=== PATIENT | female | born 1980 | race Caucasian/White ===

== ENCOUNTER 2019-10-07 11:13 | Outpatient (CLI) | payer OTHER, SELFPAY ==
--- NOTE | 2019-10-07 11:17 | MM_ITS ---
WS: [id number] BILATERAL DIGITAL SCREENING MAMMOGRAPHY WITH CAD CLINICAL INFORMATION: SCREENING HISTORY: Screening mammogram. No current complaints. COMPARISON: TECHNIQUE: Bilateral CC and MLO views. FINDINGS: The breasts are composed of heterogeneous fibroglandular density tissue, which can limit the detectio n of small underlying mass lesions. No suspicious mass, asymmetry, calcifications, or architectural d istortion. No evidence of malignancy. MM/[place] [id number] IMPRESSION: BI-RADS: 1-Negative FOLLOW UP: 1 Year Follow-up Recommend return to annual screening mammography.
== END 2019-10-07 11:14 | disposition home or self-care (01) ==
LOC: RADSHAW 11:13
PROVIDERS: Family Provider Internal Medicine; PCP Internal Medicine; Visit Provider Internal Medicine
DX: Z12.31 Encounter for screening mammogram for malignant neoplasm of breast (principal)
CPT/HCPCS: 77067

== ENCOUNTER → 2020-04-12 08:53 | Outpatient (BNVA) | payer OTHER, SELFPAY | PROVIDERS: Family Provider Internal Medicine; PCP Internal Medicine; Visit Provider Internal Medicine | DX: C73 Malignant neoplasm of thyroid gland (principal); E89.0 Postprocedural hypothyroidism; Z13.1 Encounter for screening for diabetes mellitus; Z13.220 Encounter for screening for lipoid disorders | CPT/HCPCS: 99203 ==

== ENCOUNTER 2020-05-11 07:46 | Outpatient (CLI) | payer OTHER, SELFPAY ==
[2020-05-11 08:30] LABS: Estmated Average Glucose 85; Hemoglobin A1C 4.6 % (4.0-6.0)
[2020-05-11 09:03] LABS: Chol HDL Ratio 3.02 mg/dL (0.0-4.40); Cholesterol 169 mg/dL (0-200); Free T4 Free Thyroxine 1.74 ng/dL (0.82-1.77); HDL Cholesterol 56 mg/dL (60-100); LDL Cholesterol Calculated 100 mg/dL (50-129); LDL HDL Ratio 1.79 RATIO (0.00-3.22); Thyroid Stimulating Hormone 1.04 uIU/mL (0.27-4.20); Triglycerides 64 mg/dL (0-150)
[2020-05-15 15:53] LABS: Thyroglobulin AB <1 IU/mL (< or = 1)
[2020-05-19 18:27] LABS: Thyroglobulin Level <0.4 ng/mL
== END 2020-05-11 07:47 | disposition home or self-care (01) ==
PROVIDERS: Internal Medicine; PCP Internal Medicine; Visit Provider Internal Medicine
DX: C73 Malignant neoplasm of thyroid gland (principal); E03.9 Hypothyroidism, unspecified; Z13.1 Encounter for screening for diabetes mellitus; Z13.220 Encounter for screening for lipoid disorders
CPT/HCPCS: 80061; 83036; 84432; 84439; 84443; 86800

== ENCOUNTER 2020-06-07 10:19 | Outpatient (CLI) | payer OTHER, SELFPAY ==
--- NOTE | 2020-06-07 10:15 | US_ITS ---
WS: [id number] THYROID ULTRASOUND HISTORY: history of PTC thyroid cancer, s/p total thyroidectomy. COMPARISON: 09/26/2016 Status post complete thyroidectomy. At the thyroid bed there is no evidence for recurrent mass. No ce rvical chain lymphadenopathy. No fluid collections. US/US thyroid [id number] IMPRESSION: Status post complete thyroidectomy with no recurrent mass or nodule.
== END 2020-06-07 10:20 | disposition home or self-care (01) ==
LOC: RAD 10:20
PROVIDERS: PCP Internal Medicine; Visit Provider Internal Medicine
DX: Z85.850 Personal history of malignant neoplasm of thyroid (principal); E89.0 Postprocedural hypothyroidism
CPT/HCPCS: 76536

== ENCOUNTER 2020-11-02 08:39 | Outpatient (CLI) | payer OTHER, SELFPAY ==
--- NOTE | 2020-11-02 08:45 | MM_ITS ---
WS: [id number] SCREENING DIGITAL MAMMOGRAM WITH CAD HISTORY: SCREENING COMPARISON: 10/07/2019, 12/23/2018, 09/23/2018 and 11/24/2014 Bilateral CC and MLO views submitted. Computer aided detection analyzed. Breast composition: There are scattered areas of fibroglandular density. Nodular area of increasing asymmetry in the upper outer quadrant of the RIGHT breast. Best seen on th e elbow MLO projection. Favor this is probably superimposed fibroglandular tissue. Recommend addition al spot views. MM/[place] [id number] IMPRESSION: BI-RADS: 0-Incomplete: Need additional imaging evaluation FOLLOW UP: Need Additional Imaging RIGHT breast: Spot compression views (CC and MLO). True ML. Ultrasound to follo w if abnormality persists.
== END 2020-11-02 08:40 | disposition home or self-care (01) ==
LOC: RADSHAW 08:42
PROVIDERS: PCP Internal Medicine; Visit Provider Obstetrics & Gynecology
DX: Z12.31 Encounter for screening mammogram for malignant neoplasm of breast (principal); N64.89 Other specified disorders of breast
CPT/HCPCS: 77067

== ENCOUNTER 2020-11-21 13:09 | Outpatient (CLI) | payer OTHER, SELFPAY ==
--- NOTE | 2020-11-21 13:15 | US_ITS ---
WS: [id number] RIGHT DIGITAL MAMMOGRAPHY WITH CAD CLINICAL INFORMATION: N64.89 - Other specified disorders of breas COMPARISON: October 23, 2020 TECHNIQUE: 3 views of the right breast were obtained. FINDINGS: Scattered fibroglandular densities of the right breast. Asymmetric density upper outer right breast i s persistent today. This persists on spot compression views. Ultrasound is pending. ULTRASOUND BREAST RIGHT TECHNIQUE: Ultrasound right breast focused area of concern. CLINICAL INFORMATION: N64.89 - Other specified disorders of breast COMPARISON: None. FINDINGS: Ultrasound right breast 9 to 11:00 position. A few incidental dilated ducts some with debris. Normal underlying breast tissue with fibrocystic changes. No suspicious cystic or solid lesions. No lesions to target for biopsy. Recommend return to annual screening mammography. US/US breast RT limited* [id number] IMPRESSION: BI-RADS: 2-Benign FOLLOW UP: 1 Year Follow-up Recommend return to annual screening mammography.
--- NOTE | 2020-11-21 13:30 | MM_ITS ---
WS: [id number] RIGHT DIGITAL MAMMOGRAPHY WITH CAD CLINICAL INFORMATION: N64.89 - Other specified disorders of breas COMPARISON: October 23, 2020 TECHNIQUE: 3 views of the right breast were obtained. FINDINGS: Scattered fibroglandular densities of the right breast. Asymmetric density upper outer right breast i s persistent today. This persists on spot compression views. Ultrasound is pending. ULTRASOUND BREAST RIGHT TECHNIQUE: Ultrasound right breast focused area of concern. CLINICAL INFORMATION: N64.89 - Other specified disorders of breast COMPARISON: None. FINDINGS: Ultrasound right breast 9 to 11:00 position. A few incidental dilated ducts some with debris. Normal underlying breast tissue with fibrocystic changes. No suspicious cystic or solid lesions. No lesions to target for biopsy. Recommend return to annual screening mammography. MM/[place] [id number] IMPRESSION: BI-RADS: 2-Benign FOLLOW UP: 1 Year Follow-up Recommend return to annual screening mammography.
== END 2020-11-21 13:10 | disposition home or self-care (01) ==
LOC: RADSHAW 13:12
PROVIDERS: PCP Internal Medicine; Visit Provider Obstetrics & Gynecology
DX: N64.89 Other specified disorders of breast (principal)
CPT/HCPCS: 76642; 77065

== ENCOUNTER → 2020-11-30 08:25 | Outpatient (BNVA) | payer OTHER, SELFPAY | PROVIDERS: PCP Internal Medicine; Visit Provider Internal Medicine | DX: C73 Malignant neoplasm of thyroid gland (principal); E89.0 Postprocedural hypothyroidism | CPT/HCPCS: 99214 ==

== ENCOUNTER 2021-12-05 07:41 | Outpatient (CLI) | payer OTHER, SELFPAY ==
--- NOTE | 2021-12-05 08:00 | MM_ITS ---
WS: [id number] BILATERAL SCREENING 3D TOMOSYNTHESIS DIGITAL MAMMOGRAM WITH CAD HISTORY: SCREENING COMPARISON: 11/21/2020, 11/02/2020, 10/07/2019 and 09/23/2018 Bilateral CC and MLO views submitted. Computer aided detection analyzed. Breast composition: The breasts are heterogeneously dense, which may obscure small masses. No suspici ous masses, microcalcifications or architectural distortion. Asymmetries within each breast have been stable for several years, including 09/23/2018. No suspicious calcification or distortion. MM/[place] [id number] IMPRESSION: BI-RADS: 2-Benign FOLLOW UP: 1 Year Follow-up
== END 2021-12-05 07:42 | disposition home or self-care (01) ==
PROVIDERS: PCP Internal Medicine; Visit Provider Internal Medicine
DX: Z12.31 Encounter for screening mammogram for malignant neoplasm of breast (principal)
CPT/HCPCS: 77063; 77067

== ENCOUNTER → 2022-04-17 12:15 | Outpatient (BNVA) | payer OTHER, SELFPAY | PROVIDERS: PCP Internal Medicine; Visit Provider Nurse Practitioner Women's Health | DX: Z01.419 Encounter for gynecological examination (general) (routine) without abnormal findings (principal) | CPT/HCPCS: 87624 ==

== ENCOUNTER 2022-09-18 01:00 | Outpatient (CLI) | payer OTHER, SELFPAY ==
--- NOTE | 2022-11-14 11:15 | US_ITS ---
WS: [id number] ULTRASOUND THYROID TECHNIQUE: Ultrasound of the thyroid. CLINICAL INFORMATION: Papillary Thyroid carcinoma COMPARISON: June 07, 2020 FINDINGS: Thyroid: Prior complete thyroidectomy. No residual thyroid tissue visualized. No evidence of recurren t mass or lesion in the thyroid bed. Cervical lymphadenopathy: Normal RIGHT cervical lymph node.
== END 2022-09-18 23:00 | disposition home or self-care (01) ==
LOC: RAD 10-07 20:00
PROVIDERS: PCP Family Medicine; Visit Provider Internal Medicine
DX: Z13.6 Encounter for screening for cardiovascular disorders (principal); E89.0 Postprocedural hypothyroidism; Z00.00 Encounter for general adult medical examination without abnormal findings; Z13.1 Encounter for screening for diabetes mellitus
CPT/HCPCS: 80053; 80061; 83036; 84439; 84443; 85025; 86376; 86800

== ENCOUNTER 2022-11-14 10:54 | Outpatient (CLI) | payer OTHER, SELFPAY ==
--- NOTE | 2022-11-14 09:49 | US_ITS ---
WS: [id number] ULTRASOUND THYROID TECHNIQUE: Ultrasound of the thyroid. CLINICAL INFORMATION: Papillary Thyroid carcinoma COMPARISON: June 07, 2020 FINDINGS: Thyroid: Prior complete thyroidectomy. No residual thyroid tissue visualized. No evidence of recurren t mass or lesion in the thyroid bed. Cervical lymphadenopathy: Normal RIGHT cervical lymph node. US/US thyroid [id number] IMPRESSION: 1. Prior postoperative changes complete thyroidectomy. 2. No evidence of recurrent mass or lesion in the thyroid bed.
== END 2022-11-14 10:55 | disposition home or self-care (01) ==
PROVIDERS: PCP Family Medicine; Visit Provider Internal Medicine
DX: C73 Malignant neoplasm of thyroid gland (principal); E89.0 Postprocedural hypothyroidism
CPT/HCPCS: 76536; 84432; 86800

== ENCOUNTER 2022-12-19 07:20 | Outpatient (CLI) | payer OTHER, SELFPAY ==
--- NOTE | 2022-12-19 07:33 | MM_ITS ---
WS: [id number] SCREENING DIGITAL TOMOSYNTHESIS MAMMOGRAM WITH CAD HISTORY: SCREENING COMPARISON: 12/05/2021, 11/02/2020 Bilateral CC and MLO with tomosynthesis views submitted. Synthetic mammography reviewed. Computer aid ed detection analyzed. Breast composition: The breasts are heterogeneously dense, which may obscure small masses. No suspici ous masses, microcalcifications or architectural distortion. Stable asymmetries over multiple years. MM/[place] [id number] IMPRESSION: BI-RADS: 2-Benign FOLLOW UP: 1 Year Follow-up
== END 2022-12-19 07:21 | disposition home or self-care (01) ==
LOC: RAD 07:24
PROVIDERS: PCP Family Medicine; Visit Provider Nurse Practitioner Women's Health
DX: Z12.31 Encounter for screening mammogram for malignant neoplasm of breast (principal)
CPT/HCPCS: 77063; 77067

== ENCOUNTER → 2023-02-19 14:40 | Outpatient (BNVA) | payer OTHER, SELFPAY | PROVIDERS: PCP Family Medicine; Visit Provider Nurse Practitioner Women's Health | DX: N92.0 Excessive and frequent menstruation with regular cycle (principal) | CPT/HCPCS: 85025 ==

== ENCOUNTER → 2023-03-03 13:20 | Outpatient (BNVA) | payer OTHER, SELFPAY | PROVIDERS: PCP Family Medicine; Visit Provider Nurse Practitioner Women's Health | DX: R30.0 Dysuria (principal) | CPT/HCPCS: 84315; 87086 ==

== ENCOUNTER → 2023-03-19 11:03 | Outpatient (BNVA) | payer OTHER, SELFPAY | PROVIDERS: PCP Family Medicine; Visit Provider Nurse Practitioner Women's Health | DX: N93.9 Abnormal uterine and vaginal bleeding, unspecified (principal); R93.89 Abnormal findings on diagnostic imaging of other specified body structures | CPT/HCPCS: 76830 ==

== ENCOUNTER → 2023-03-27 14:38 | Outpatient (BNVA) | payer OTHER, SELFPAY | PROVIDERS: PCP Family Medicine; Visit Provider Nurse Practitioner Women's Health | DX: N93.9 Abnormal uterine and vaginal bleeding, unspecified (principal) | CPT/HCPCS: 88305 ==

== ENCOUNTER 2023-07-07 05:51 | Day surgery (SDC) | payer OTHER, SELFPAY ==
[2023-07-03 11:39] LABS: Basophils % 0.6 %; Eosinophils # 0.1 10^3/uL (0.0-0.8); Eosinophils % 1.7 %; Hematocrit 39.9 % (36-47); Lymphocytes # 1.7 10^3/uL (0.8-4.8); Lymphocytes % 24.9 %; Mean Corpuscular HGB Conc 33.1 g/dL (30-55); Mean Corpuscular Hemoglobin 29.1 pg (27-33); Mean Corpuscular Volume 87.9 fl (85-98); Mean Platelet Volume 10.8 fL (7.4-10.4); Monocytes # 0.4 10^3/uL (0.2-0.9); Monocytes % 5.1 %; Neutrophils # 4.62 10^3/uL (1.8-7.7); Neutrophils % 67.4 %; Nucleated Red Blood Cells % 0 %; Platelet Count 314 10^3/cmm (157-399); Red Blood Count 4.54 10^6/uL (3.85-5.65); Red Cell Distribution Width 14.9 % (12.1-15.1); White Blood Count 6.86 10^3/uL (3.29-11.43)
[2023-07-03 12:00] LABS: Alanine Aminotransferase 16 U/L (0-33); Albumin Level 4.2 g/dL (3.5-5.2); Alkaline Phosphatase 79 U/L (35-105); Anion Gap 11.6 (5-19); Aspartate Amino Transferase 14 U/L (0-32); Blood Urea Nitrogen 12 mg/dL (6-20); Carbon Dioxide 27 mmol/L (22-29); Chloride 104 mmol/L (98-107); Globulin 2.5 g/dL (1.3-4.6); Glomerular Filtration Rate 77.9 mL/min (90-130); Glucose 86 mg/dL (65-115); Osmolality Calculated 287 mOsm/kg (285-295); Potassium 3.6 mmol/L (3.5-5.1); Sodium 139 mmol/L (136-145); Total Bilirubin 0.7 mg/dL (0.15-1.2); Total Protein 6.7 g/dL (6.6-8.7)
[2023-07-03 12:50] LABS: Add Urine Microscopic? YES; Bacteria Urine 1+ /hpf; Bilirubin Urine Neg (Negative); Blood Urine 2+ (Negative); Glucose Urine UA Norm (Normal); Ketones Urine 1+ (Negative); Leukocyte Esterase Urine Negative (Negative); Nitrate Urine Negative (Negative); Protein Urine Neg (Negative); RBC Urine 0-4 /hpf (0-2); Squamous Epithelial Cell Urine 0-4 /hpf (0-5); Urine Appearance Clear (CLEAR); Urine Color Yellow (Yellow); Urobilinogen Urine Norm (Negative); WBC Urine 0-4 /hpf (0-5); pH Urine 5 (5-7)
[2023-07-03 18:57] LABS: OR HCG Qualitative Urine Negative (Negative)
[2023-07-07] VITALS (10 sets, daily range): BP systolic 107–145; BP diastolic 63–93; PULSE 70–105; RESP 16–20; TEMP 36.4–36.6; O2SAT 93–98
[2023-07-07] MEDS: sodium chloride 0.9% 500 ML IV (06:24)
[2023-07-07] MEDS: scopolamine 1.5 Patch 1 PATCH TRANSDERMA (06:26)
[2023-07-07] MEDS: sodium chloride 0.9% 1,000 ML 30 ML IV (06:27)
--- NOTE | 2023-07-07 06:55 | W.PM.OPSUD ---
Surgery/Procedure H&P Update DATE OF PROCEDURE: July 07, 2023 DATE H&P PERFORMED: 07/03/23 H&P UPDATE INFORMATION: I have reviewed H&P completed within last 30 days, I have examined patient prior to procedure and No changes to prior documentation PREOP DIAGNOSIS: Abnormal uterine bleeeding PLANNED PROCEDURE: Operation Date: 07/07/23 07:00 Proposed Procedures p Hysteroscopy w/ Ablation(Not Applicable) - Mati Quesada MD
--- NOTE | 2023-07-07 06:58 | ANES.PREANE2 ---
Pre-Anesthetic Assessment Height/Weight: Height 1.68 m Weight 84.822 kg Temp Pulse Resp BP Pulse Ox O2 Del Method 97.5 F L 70 18 136/89 98 Room Air 07/07/23 05:55 07/07/23 05:55 07/07/23 05:55 07/07/23 05:55 07/07/23 05:55 07/07/23 06:13 Preop Diagnosis: Abnormal uterine bleeeding Operation Date: 07/07/23 07:00 Proposed Procedures p Hysteroscopy w/ Ablation(Not Applicable) - Mati Quesada MD Familial anesthetic complications: ponv Was Beta Apple taken within 24 hours: N/A Was Clonidine taken within 24 hours: N/A Last intake: Intake Last Liquid Date 07/06/23 Last Liquid Time 22:00 Last Solid Date 07/06/23 Last Solid Time 20:30 Social Tobacco and No alcohol Exam alert, oriented x 3, clear to auscultation bilaterally and regular rate & rhythm Airway Mallampati: Class II Dentition: full Anesthetic Plan ASA status: 1 Anesthesia: General Risk of > 500 ml blood loss (7ml/kg in children): No Medications/Allergies Home Medications Medication Instructions Recorded Confirmed Last Taken Type multivitamin 1 cap PO DAILY 04/12/20 07/07/23 07/02/23 History cetirizine 10 mg tablet (Zyrtec) 10 mg PO DAILY PRN Allergy Symptoms 11/08/20 07/03/23 07/06/23 History levothyroxine 137 mcg capsule 137 mcg PO DAILY #90 caps 09/18/22 07/07/23 07/06/23 Rx citalopram 10 mg tablet See Rx Instructions .Route 01/27/23 07/07/23 07/06/23 Rx .COMPLEX #90 tabs Allergies Allergy/AdvReac Type Severity Reaction Status Date / Time Sulfa (Sulfonamide Allergy Mild ALGY-Rash Verified 07/07/23 06:01 Antibiotics) Current Medications Generic Name Dose Route Start Last Admin Trade Name Freq PRN Reason Stop Dose Admin Sodium Chloride 1,000 mls @ 30 mls/hr 07/07/23 06:00 07/07/23 06:27 Sodium Chloride 0.9% IV 07/08/23 05:59 30 mls/hr .Q24H DOMI Administration PFSH Anesthesia Medical History MATTI (generalized anxiety disorder) Papillary thyroid carcinoma Post-surgical hypothyroidism Surgical History History of thyroidectomy Family History Mother Hypertension Diabetes Father Prostate cancer dx age 71 Brother Diabetes Sister Diabetes Heart disease Thyroid disease Grandmother Heart disease Maternal Stroke Maternal Denies family history of Colon cancer Ovarian cancer Hypercholesteremia Breast cancer Uterine cancer Female Reproductive History Date of last menstrual period: 07/03/23 Data Anesthesia 07/03/23 11:10 07/03/23 11:10 Cardiac Studies: No Data to Display
[2023-07-07] MEDS: ceFAZolin 2,000 MG in sodium chloride 0.9% (plus) 50 ML 100 MG IV (06:59)
[2023-07-07 07:02] LABS: OR HCG Qualitative Urine Negative (Negative)
[2023-07-07] MEDS: lidocaine-epi 2% 20 mL INJ INJECTION (07:30)
--- NOTE | 2023-07-07 07:40 | PM.OP ---
Operative Report Date of procedure: July 07, 2023 Pre-op diagnosis: Abnormal uterine bleeding, menorrhagia Post-op diagnosis: Same Post-op findings: Proliferative endometrium Procedure done: Endometrial ablation Hysteroscopy Specimens removed/disposition: Endometrial curettings Surgeon: Mati Quesada MD Estimated blood loss (mL): 10 IV fluids (mL): 800 Complications: none Brief History: Ms. Wood is a 42 year-old female who presented to the office for abnormal uterine bleeding. Ultrasound imaging did not reveal any submucosal fibroids or polyps. Conservative therapies including TXA, OCP, and Mirena were discussed/tried. Ultimately, a plan was made to proceed with a novosure endometrial ablation. Risks, potential complications, and benefits were discussed with Mrs. Emerson and consent was signed prior to the OR. Procedure: After informed consent, this is a 42-year-old patient who has completed childbearing; and she has a tubal ligation. The patient desired control for abnormal uterine bleeding. She declined other more conservative options such as oral contraceptive pills and Mirena intrauterine device. The patient desired an ablation. Risks of the surgery, which include risk of infection, bleeding, urine perforation; were discussed in detail with the patient. Patient was also informed that is not advised after having an ablation procedure done. Patient verbalized understanding of the risks, and informed consent was obtained. The patient was taken to the operating room where general anesthesia was administered. The patient was examined under anesthesia and found to have a normal uterus with normal adnexa. She was placed in the dorsal lithotomy position and prepped and draped in sterile fashion. A weighted speculum was placed in the vagina, and the anterior lip of cervix was grasped with the single toothed tenaculum. The uterus was then gently sounded to 10 cm. The length of the cervical canal was 4 cm and the canal was dilated to 8 mm with Pat?s dialators. and the 2.7 cm hysteroscope advanced gently to the uterine fundus while visualizing the monitor. Survey of the uterine cavity showed: fundus normal proliferative endometrium; left and right ostiums visualized, anterior wall with proliferative endometrium; and posterior wall with proliferative endometrium; the endocervical canal is normal. No intrauterine lesions noted. The hysteroscope was removed. A curette was advanced gently to the uterine fundus and rotated to clear the uterus. A sharp curettage wan then performed until a gritty texture was noted. There was minimal bleeding noted. The sterile NovaSure? Disposable Device package was opened, connected and tested per instructions. It was found to be working properly. The device?s array is completely enclosed by the external sheath and the WIDTH dial reads approximately 0.5 cm. The appropriate cavity length settings was set 6.0 cm. Adjust and lock the cavity length setting feature on the Disposable Device to the value obtained. The Cervical Collar was fully retracted to its proximal position. Confirmed that the cervix was dilated to 8.0 mm. While maintaining a slight traction on the tenaculum to minimize the angle of the uterus. In-line with the axis of the uterus the Disposable Device was inserted transcervically into the uterine cavity and advance the device until the distal end of the sheath touched the fundus. The handles were slowly squeezed up to the point of increased resistance without locking it. The WIDTH dial read 4.5 cm. The Disposable Device handles were slowly squeezed together while gently moving the Disposable Device -0.5 cm to and from the fundus and rotating the handle of the Disposable Device 45? counterclockwise from the vertical plane and 45? clockwise from the vertical plane until the handles locked and confirmed the with dial read greater than 2.5 cm. The Disposable Device was gently moved using anterior, posterior and lateral movements. The Disposable Device was slightly pulled back until the WIDTH dial reading reduced by approximately 0.2-0.5 cm. While holding the tenaculum, the Disposable Device was advance to the fundus, maintaining slight forward pressure. The WIDTH dial read to the previous measurement. The Cervical Collar was slide forward until it forms a seal against the external cervical os. The value indicated on the width dial into the NovaSure? RF Controller. In Automatic Mode the Cavity Integrity Assessment (MARY) procedure by stepping on the foot switch once was began. The cavity integrity assessment LED signaled the test has passed. The ablation cycle started was after the successful completion of the Cavity Integrity Assessment test. Termination of the ablation was automatic at 41 seconds. The Cervical Collar was slide it to its proximal position. The Disposable Device was unlock, holding the front music education director stationary and pulling the rear handles backwards until the Closed Array indicator reads closed the Disposable Device was withdrawn from the uterine cavity. A hysteroscopy was performed post ablation to confirm therapy it was noted that endometrial cavity had been thoroughly ablated. Prior to this, a sharp curettage was performed, and endometrial curettings were also collected. Patient did have an endometrial biopsy in the office as well, which was negative. The hysteroscope and the tenaculum were removed with goad hemostasis noted. The patient tolerated the procedure well. The patient was taken to the recovery area in stable condition.
--- NOTE | 2023-07-07 07:59 | PC.NURSE ---
0755-Removed oral airway. Pt in no distress and breathing well.
--- NOTE | 2023-07-07 09:00 | ANE.PACU2 ---
Inpatient post-anesthesia follow up: Airway intact: Yes Vital signs: Temperature 98 F Pulse Rate 90 Respiratory Rate 18 Blood Pressure 134/86 Pulse Oximetry 96 Oxygen Delivery Me thod Room Air Oxygen Flow Rate 4 Fraction of Inspir ed Oxygen Hydration adequate: Yes Nausea and vomiting: No Pain level: 1 Mental status: Baseline
== END 2023-07-07 09:11 | disposition home or self-care (01) ==
PROVIDERS: PCP Family Medicine; Visit Provider Obstetrics & Gynecology
PROC: 0U598ZZ Destruction of Uterus, Via Natural or Artificial Opening Endoscopic (ICD-10-PCS; CPT 58563; principal; 2023-07-07 07:00)
DX: N93.9 Abnormal uterine and vaginal bleeding, unspecified (principal); N92.0 Excessive and frequent menstruation with regular cycle
CPT/HCPCS: 58558; 80053; 81001; 84703; 85025; 86850; 86900; 88305; J0690; J1100; J2250; J2405; J2704; J3010; J3490; J7030; J7040

== ENCOUNTER → 2023-10-01 08:32 | Outpatient (BNVA) | payer OTHER, SELFPAY | PROVIDERS: PCP Family Medicine; Visit Provider Family Medicine | DX: Z12.11 Encounter for screening for malignant neoplasm of colon (principal); F41.1 Generalized anxiety disorder; E89.0 Postprocedural hypothyroidism; C73 Malignant neoplasm of thyroid gland; Z00.00 Encounter for general adult medical examination without abnormal findings | CPT/HCPCS: 84432; 84439; 84443; 86800 ==

== ENCOUNTER 2023-11-18 07:14 | Day surgery (SDC) | payer OTHER, SELFPAY ==
[2023-11-18 07:30] VITALS: BP 118/81; PULSE 67; RESP 16; TEMP 36.4; O2SAT 97
[2023-11-18 07:34] VITALS: BMI 30.8
[2023-11-18 07:36] LABS: OR HCG Qualitative Urine Negative (Negative)
[2023-11-18] MEDS: sodium chloride 0.9% 1,000 ML 30 ML IV (07:45)
--- NOTE | 2023-11-18 07:51 | ANES.PREANE2 ---
Pre-Anesthetic Assessment Height/Weight: Height 1.68 m Weight 86.636 kg Operation Date: 11/18/23 08:30 Proposed Procedures p 46485 screen colonoscopy G0121 screen colon a risk Z12.11(Not Applicable) - Duke Alba DO Familial anesthetic complications: none Was Beta Apple taken within 24 hours: N/A Last intake: Intake Last Liquid Date 11/17/23 Last Liquid Time 22:30 Last Solid Date 11/16/23 Last Solid Time 21:30 Social Alcohol (occasional) Exam alert, oriented x 3, clear to auscultation bilaterally and regular rate & rhythm Airway Submandibular: within normal limits Cervical ROM: within normal limits Mallampati: Class I Pulmonary None reported CV/HEM None reported None reported Hepatic None reported GI None reported Metabolic Thyroid Disease [facility] None reported Neuropsych Anxiety Anesthetic Plan ASA status: 1 Anesthesia: MAC Other: HCG NEGATIVE Medications/Allergies Home Medications Medication Instructions Recorded Confirmed Last Taken Type multivitamin 1 cap PO DAILY 04/12/20 11/18/23 11/17/23 History cetirizine 10 mg tablet (Zyrtec) 10 mg PO DAILY PRN Allergy Symptoms 11/08/20 11/18/23 11/17/23 History magnesium glycinate 100 mg PO DAILY 08/20/23 11/18/23 11/17/23 History turmeric 100 mg-nasima 150 1 cap PO DAILY 08/20/23 11/18/23 11/17/23 History mg-olive 50 mg-oreg 150 mg-capryl capsule citalopram 10 mg tablet 10 mg PO DAILY #90 tabs 10/01/23 11/18/23 11/17/23 Rx meloxicam 15 mg tablet 15 mg PO DAILY 10/08/23 11/18/23 11/17/23 History levothyroxine 137 mcg tablet 137 mcg PO DAILY 11/16/23 11/18/23 11/18/23 History Allergies Allergy/AdvReac Type Severity Reaction Status Date / Time Sulfa (Sulfonamide Allergy Mild ALGY-Rash Verified 11/18/23 07:32 Antibiotics) Current Medications Generic Name Dose Route Start Last Admin Trade Name Freq PRN Reason Stop Dose Admin Sodium Chloride 1,000 mls @ 30 mls/hr 11/18/23 07:45 11/18/23 07:45 Sodium Chloride 0.9% IV 11/19/23 07:44 30 mls/hr .Q24H DOMI Administration PFSH Anesthesia Medical History MATTI (generalized anxiety disorder) Post-surgical hypothyroidism Papillary thyroid carcinoma Surgical History Status post hysteroscopic ablation of endometrium (~07/07/23) AUB,menorrhagia performed by Dipak at [facility]. Pathology disordered endometrium, no atypia,hyperplasia,or malignancy. Changes of an endometrial polyp noted. History of thyroidectomy Family History Mother Hypertension Diabetes Father Prostate cancer dx age 71 Brother Diabetes Sister Diabetes Heart disease Thyroid disease Grandmother Heart disease Maternal Stroke Maternal Denies family history of Colon cancer Ovarian cancer Hypercholesteremia Breast cancer Uterine cancer Female Reproductive History Date of last menstrual period: 06/08/23 Data Anesthesia Cardiac Studies: No Data to Display
--- NOTE | 2023-11-18 08:28 | PM.HP ---
Providers/Chief Complaint Primary Care Provider: Caroline Crabtree MD Chief Complaint: Z12.11 History of Present Illness Kat Emerson is a 43 year old female Review of Systems General: Reports: 10 or more systems reviewed and unremarkable except in HPI and below Medications/Allergies Home Medications Medication Instructions Recorded Confirmed Last Taken Type multivitamin 1 cap PO DAILY 04/12/20 11/18/23 11/17/23 History cetirizine 10 mg tablet (Zyrtec) 10 mg PO DAILY PRN Allergy Symptoms 11/08/20 11/18/23 11/17/23 History magnesium glycinate 100 mg PO DAILY 08/20/23 11/18/23 11/17/23 History turmeric 100 mg-nasima 150 1 cap PO DAILY 08/20/23 11/18/23 11/17/23 History mg-olive 50 mg-oreg 150 mg-capryl capsule citalopram 10 mg tablet 10 mg PO DAILY #90 tabs 10/01/23 11/18/23 11/17/23 Rx meloxicam 15 mg tablet 15 mg PO DAILY 10/08/23 11/18/23 11/17/23 History levothyroxine 137 mcg tablet 137 mcg PO DAILY 11/16/23 11/18/23 11/18/23 History Allergies Allergy/AdvReac Type Severity Reaction Status Date / Time Sulfa (Sulfonamide Allergy Mild ALGY-Rash Verified 11/18/23 07:32 Antibiotics) PFSH Acute PFSH: Medical History MATTI (generalized anxiety disorder) Post-surgical hypothyroidism Papillary thyroid carcinoma Surgical History Status post hysteroscopic ablation of endometrium (~07/07/23) AUB,menorrhagia performed by Dipak at [facility]. Pathology disordered endometrium, no atypia,hyperplasia,or malignancy. Changes of an endometrial polyp noted. History of thyroidectomy Family History Mother Hypertension Diabetes Father Prostate cancer dx age 71 Brother Diabetes Sister Diabetes Heart disease Thyroid disease Grandmother Heart disease Maternal Stroke Maternal Denies family history of Colon cancer Ovarian cancer Hypercholesteremia Breast cancer Uterine cancer Female Reproductive History: Date of last menstrual period: 06/08/23 Vitals/I&O/Wt Weight last 48 hrs Weight 191 lb A&P Assessment and plan (1) Colon cancer screening: Plan Colonoscopy Attestations Medical Necessity Statement*: Home Coding Level of Care Code Acute Code for Chg Fwd Diagnoses Colon cancer screening Z12.11
[2023-11-18 08:44] VITALS: BP 94/61; PULSE 76; RESP 18; TEMP 36.2; O2SAT 92
[2023-11-18 09:10] VITALS: BP 125/88; PULSE 60; RESP 18; O2SAT 100
--- NOTE | 2023-11-18 09:20 | ANE.PACU2 ---
Inpatient post-anesthesia follow up: Airway intact: Yes Vital signs: Temperature 97.1 F Pulse Rate 60 Respiratory Rate 18 Blood Pressure 125/88 Pulse Oximetry 100 Oxygen Delivery Me thod Room Air Oxygen Flow Rate Fraction of Inspir ed Oxygen Hydration adequate: Yes Nausea and vomiting: No Pain level: 1 Mental status: Baseline
== END 2023-11-18 09:19 | disposition home or self-care (01) ==
PROVIDERS: Anesthesiology; PCP Family Medicine; Visit Provider Surgery
PROC: 0DJD8ZZ Inspection of Lower Intestinal Tract, Via Natural or Artificial Opening Endoscopic (ICD-10-PCS; CPT 45378; principal; 2023-11-18 08:30)
DX: Z12.11 Encounter for screening for malignant neoplasm of colon (principal); K64.8 Other hemorrhoids; F41.1 Generalized anxiety disorder
CPT/HCPCS: 45378; 81025; 84703; J2704; J7030

== ENCOUNTER 2023-12-24 07:47 | Outpatient (CLI) | payer OTHER, SELFPAY ==
--- NOTE | 2023-12-24 07:55 | MM_ITS ---
WS: [id number] BILATERAL SCREENING DIGITAL TOMOSYNTHESIS MAMMOGRAM WITH CAD HISTORY: SCREENING COMPARISON: 12/19/2022, 12/05/2021, 11/02/2020 Bilateral CC and MLO views with tomosynthesis and synthetic mammography submitted. Computer aided det ection analyzed. Breast composition: There are scattered areas of fibroglandular density. No suspicious masses, microc alcifications or architectural distortion. Asymmetries are stable in each breast. There is an asymmet ry in the medial posterior LEFT breast which has been present on prior imaging studies without change . No suspicious mass. No distortion. IMPRESSION: MM/[place] [id number] BI-RADS: 2-Benign FOLLOW UP: 1 Year Follow-up
== END 2023-12-24 07:48 | disposition home or self-care (01) ==
LOC: RAD 07:47
PROVIDERS: PCP Family Medicine; Visit Provider Family Medicine
DX: Z12.31 Encounter for screening mammogram for malignant neoplasm of breast (principal)
CPT/HCPCS: 77063; 77067

== ENCOUNTER 2024-12-26 07:58 | Outpatient (CLI) | payer OTHER, SELFPAY ==
--- NOTE | 2024-12-26 08:03 | MM_ITS ---
WS: [id number] VIEWS: MLO and CC views both breasts. 3D digital tomosynthesis is also included in this exam. Comparison made with prior exam of 10/07/2019, 11/02/2020, 11/21/2020, 11/24/2014, 09/23/2018, 12/05/2021, 12/19/2022. 12/24/2023.. Findings: The breasts are heterogeneously dense, which may obscure small masses. No sign of suspicious mass, tumor calcification or architectural distortion. No change. MM/MM scr BI tomosynthesis [id number] Impression: BI-RADS: 2 - Benign FOLLOW-UP: 1 Year Follow-up This mammogram was also analyzed by the Computer Aided Detection System [employer].
== END 2024-12-26 07:59 | disposition home or self-care (01) ==
PROVIDERS: PCP Family Medicine; Visit Provider Family Medicine
DX: Z12.31 Encounter for screening mammogram for malignant neoplasm of breast (principal); R92.333 Mammographic heterogeneous density, bilateral breasts
CPT/HCPCS: 77063; 77067